=== PATIENT | male | born 1965 | race Caucasian/White ===

== ENCOUNTER 2023-05-23 05:46 | Observation (INO) ==
[~2023-05-23 05:46] MED LIST: Acetaminophen IV 1 GM/100ML 1,000 MG/100 ML BAG IV PRN; HYDROmorphone 1 MG/1 ML SYRINGE IV PRN; Naloxone 0.4 mg VIAL 0.4 mg/ml 1 ml VIAL IV PRN; Ondansetron 4 mg VIAL 2 MG/ML 2 ml VIAL IV PRN; fentaNYL 100 mcg/2 ml 50 MCG/ML VIAL IV PRN
[2023-05-23] MEDS ORDERED: ceFAZolin 2 GM PREMIX 2 GM/50 ML BAG ONE (06:10)
[2023-05-23] MEDS ORDERED: Tranexamic Acid 1 GM/100ML BAG 2,000 MG/200 ML BAG IV ONE (06:10)
[2023-05-23] MEDS: Buffered Lidocaine 1% SYRIN 1 ml INTRADERM ONE (06:14)
[2023-05-23] MEDS: Lactated Ringers 1000 ml BAG 1,000 ML IV SCH ×2 (06:23→11:58)
[2023-05-23 06:47] LABS: Rapid COVID-19 Molecular Undetected (Undetected)
[2023-05-23] MEDS ORDERED: Rocuronium 50 mg VIAL 10 mg/ml 5 ml VIAL (50 mg) ONE (06:53)
[2023-05-23] MEDS ORDERED: Lidocaine 2% PF 5 ML VIAL ONE ×2 (06:53→08:12)
[2023-05-23] MEDS ORDERED: Phenylephrine IV 10 MG/ML 1 ml VIAL ONE (06:53)
[2023-05-23] MEDS ORDERED: Sevoflurane BOTTLE ONE (06:53)
[2023-05-23] MEDS ORDERED: Ondansetron 4 mg VIAL 2 MG/ML 2 ml VIAL ONE (06:54)
[2023-05-23] MEDS ORDERED: Propofol 10 MG/ML 20 ML BTL ONE ×3 (06:54→09:06)
[2023-05-23] MEDS ORDERED: Dexamethasone IV 4 MG/ML VIAL 1 ml VIAL ONE (06:54)
[2023-05-23] MEDS ORDERED: Sterile Water for Inj 10 ML ONE (06:54)
[2023-05-23] MEDS ORDERED: fentaNYL 100 mcg/2 ml 50 MCG/ML VIAL ONE (06:59)
[2023-05-23] MEDS ORDERED: Midazolam 2 mg/2 ml VIAL 1 mg/ml 2 ml VIAL (2 mg) ONE (06:59)
[2023-05-23] MEDS ORDERED: Bupivacaine 0.5% PF 10 ML SDV VIAL INJ ONE (07:07)
[2023-05-23] MEDS ORDERED: KETAMINE HCL 10 MG/ML 20 ml VIAL (200 MG) ONE (07:52)
[2023-05-23] MEDS ORDERED: Glycopyrrolate IV 0.2 MG/ML 1 ML VIAL ONE ×2 (07:53→08:27)
[2023-05-23] MEDS ORDERED: Acetaminophen IV 1 GM/100ML 1,000 MG/100 ML BAG IV ONE (08:22)
[2023-05-23] MEDS ORDERED: ROPIVACAINE 5 MG/ML 30 ML BTL (0.5%) ONE (09:03)
[2023-05-23] MEDS ORDERED: Ondansetron ODT 4 mg TAB 4 MG TAB PO PRN (10:20)
[2023-05-23] MEDS ORDERED: Morphine 2 MG/ML SYRINGE IV PRN (10:20)
[2023-05-23] MEDS ORDERED: Lactulose 30 ml UDC PO PRN (10:20)
[2023-05-23] MEDS ORDERED: Ondansetron 4 mg VIAL 2 MG/ML 2 ml VIAL IV PRN (10:20)
[2023-05-23] MEDS ORDERED: Magnesium Hydroxide LIQ 30 ML UDC PO PRN (10:20)
[2023-05-23 13:57] VITALS: BP 138/76
[2023-05-23] MEDS: ceFAZolin 1 GM ADVAN 1 GM in NS 0.9% 50 ML 50 ML IVPB SCH (15:53)
[2023-05-23] MEDS ORDERED: Magnesium Hydroxide LIQ 30 ML UDC PO SCH (21:00)
[2023-05-24] MEDS ORDERED: Vitamin THERAPEUTIC TAB PO SCH (09:00)
[2023-05-25] MEDS ORDERED: Aspirin EC 81 mg TAB.EC (enteric coated) PO SCH (09:00)
== END 2023-05-23 16:40 | disposition home or self-care (01) ==
LOC: INTOOBSV 05:46 → AA 05:46 → SSU 10:20
PROVIDERS: ADMIT Orthopaedic Surgery Adult Reconstructive Orthopaedic Surgery; ATTEND Orthopaedic Surgery Adult Reconstructive Orthopaedic Surgery